=== PATIENT | female | born 1980 | race Caucasian/White ===

== ENCOUNTER 2020-04-14 14:54 | Emergency (ER) | payer OTHER ==
--- NOTE | 2020-04-14 15:12 | EDM.PDOC ---
ED HPI GENERAL MEDICAL PROBLEM - General Chief Complaint: General Stated Complaint: swollen eye Time Seen by Provider: 04/14/20 15:12 Source of Information: Reports: Patient History Limitations: Reports: No Limitations - History of Present Illness INITIAL COMMENTS - FREE TEXT/NARRATIVE: presented to the ER with a c/o painful skin lesions to the right side of the upper face, mainly started on the upper eyelid and radiating up and backward to the scalp. All localized to one side. Also associated with some burning sensation and tingling. No vision changes or eye discharges. No fever. no painful eye movement. No weakness or numbness. Patient isn't from the area but visiting up [place] for [employer]. 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 Psychiatric History: Reports: Anxiety, Depression - Infectious Disease History Infectious Disease History: Reports: Chicken Pox - Past Surgical History Musculoskeletal Surgical History: Reports: Shoulder Surgery, Other (See Below) Other Musculoskeletal Surgeries/Procedures:: orthoscopic Social & Family History - Caffeine Use Caffeine Use: Reports: Coffee - Recreational Drug Use Recreational Drug Use: No ED ROS GENERAL - Review of Systems Review Of Systems: See Below Constitutional: Reports: No Symptoms HEENT: Reports: No Symptoms Respiratory: Reports: No Symptoms Cardiovascular: Reports: No Symptoms Musculoskeletal: Reports: No Symptoms Skin: Reports: Lesions Neurological: Reports: No Symptoms Psychiatric: Reports: No Symptoms ED EXAM, GENERAL - Physical Exam Exam: See Below Exam Limited By: No Limitations General Appearance: Alert, WD/WN, No Apparent Distress Eye Exam: Bilateral Eye: EOMI, Normal Inspection, PERRL, Other (cornea isn't affected) Respiratory/Chest: No Respiratory Distress, Lungs Clear Cardiovascular: Normal Peripheral Pulses, Regular Rate, Rhythm, No Edema Skin Exam: Zoster-Like Rash (small skin lesion suspecious for shingles on the rt upper eyelid, right forhead and scalp. ), Other Course - Vital Signs Last Recorded V/S: Last Vital Signs Temp 36.6 C 01/23/21 15:02 Pulse 99 04/14/20 15:02 Resp 18 04/14/20 15:02 BP 146/97 H 04/14/20 15:02 Pulse Ox 99 04/14/20 15:02 - Orders/Labs/Meds Meds: Medications Discontinued Medications Generic Name Dose Route Start Last Admin Trade Name Tamela STEIN Reason Stop Dose Admin Prednisone 20 mg 04/14/20 15:30 04/14/20 15:49 Prednisone PO 04/14/20 15:31 20 mg ONETIME ONE Administration Valacyclovir HCl 1,000 mg 04/14/20 15:29 04/14/20 15:49 Valtrex PO 04/14/20 15:30 1,000 mg NOW STA Administration - Re-Assessments/Exams Free Text/Narrative Re-Assessment/Exam: 04/14/20 15:52 clinical exam and history highly suspicious for shingles. given the approximate to the right eye,, will start her on antiviral therapy and prednisone as well. Valtrex 1g TID for 7 days Departure - Departure Time of Disposition: 15:51 Disposition: Home, Self-Care 01 Condition: Good Clinical Impression: Shingles of eyelid - Discharge Information *PRESCRIPTION DRUG MONITORING PROGRAM REVIEWED*: Not Applicable *COPY OF PRESCRIPTION DRUG MONITORING REPORT IN PATIENT BILL: Not Applicable Referrals: PCP,None [Primary Care Provider] - Forms: ED Department Discharge Additional Instructions: - take valtrex and prednisone as prescribed - continue to use natural tears eye drops to keep your eye moist and help decrease irritation - follow up with your PCP in 1-3 weeks as needed - return to the ER if symptoms got worse or any vision changes. Sepsis Event Note (ED) - Evaluation Sepsis Screening Result: No Definite Risk - Focused Exam Vital Signs: Vital Signs Temp Pulse Resp BP Pulse Ox 04/14/20 15:02 36.6 C 99 18 146/97 H 99 - Problem List & Annotations (1) Shingles of eyelid SNOMED Code(s): 7141747 Code(s): B02.39 - OTHER HERPES ZOSTER EYE DISEASE Status: Acute Priority: Medium Current Visit: Yes - Problem List Review Problem List Initiated/Reviewed/Updated: Yes - Assessment/Plan Plan: - take valtrex and prednisone as prescribed - continue to use natural tears eye drops to keep your eye moist and help decrease irritation - follow up with your PCP in 1-3 weeks as needed - return to the ER if symptoms got worse or any vision changes.
[2020-04-14] MEDS ORDERED: predniSONE 10 MG Tab ONE (15:30)
[2020-04-14] MEDS ORDERED: valACYclovir 1,000 MG Tab ONE (15:30)
[2020-04-14] MEDS: predniSONE 20 MG Tab PO ONE (15:49)
[2020-04-14] MEDS: valACYclovir 1,000 MG Tab PO STA (15:49)
[2020-04-14] MEDS ORDERED: predniSONE 20 MG Tab ONE (15:59)
== END 2020-04-14 16:10 | disposition home or self-care (01) ==
LOC: LB.ED 14:54
DX: B02.39 Other herpes zoster eye disease (principal); Z79.899 Other long term (current) drug therapy
CPT/HCPCS: 99283; A9270-GY; J7512